=== PATIENT | male | born 1975 | race Caucasian/White ===

== ENCOUNTER 2017-08-04 23:54 | Inpatient (IN) | payer MEDICAID ==
[~2017-08-04] VITALS: Ht 175.3 cm; Wt 54.5 kg
[2017-08-05] VITALS (17 sets, daily range): BP systolic 82–127; BP diastolic 54–77; Ht 175.3 cm; Wt 54.5 kg
[2017-08-05 00:15] LABS: BASOPHILS 0.5 % (0-2); EOSINOPHILS 1.4 % (0-7); HEMATOCRIT 48.8 % (42.0-54.0); HEMOGLOBIN 16.9 g/dL (13.5-17.5); IMMATURE GRANULOCYTES 0.3 % (0-5); LYMPHOCYTES 29.7 % (15-50); MCH 29.4 pg (26.0-34.0); MCHC 34.6 g/dL (31.0-37.0); MEAN PLATELET VOLUME 10.9 fL (7.4-10.4); MONOCYTES 5.8 % (2-11); NEUTROPHILS 62.3 % (40-80); PLATELET COUNT 409 10x3/uL (130-400); RBC 5.74 10x6/uL (4.20-6.10); RDW 12.7 % (11.5-14.5)
[2017-08-05 00:40] LABS: ALBUMIN 3.6 g/dL (3.4-5.0); ANION GAP 25.3 mmol/L (8-16); BILIRUBIN - TOTAL 0.5 mg/dL (0.2-1.3); CARBON DIOXIDE 18.5 mmol/L (21.0-32.0); CREATININE - SERUM 1.4 mg/dL (0.6-1.3); POTASSIUM - SERUM 5.8 mmol/L (3.5-5.1); PROTEIN - SERUM 7.9 g/dL (6.4-8.2)
[2017-08-05 01:07] LABS: MAGNESIUM - SERUM 1.8 mg/dL (1.8-2.4)
[2017-08-05 01:16] LABS: APPEARANCE CLEAR (CLEAR); BILIRUBIN NEGATIVE (NEGATIVE); COLOR YELLOW (YELLOW); GLUCOSE 1000 mg/dL (NEGATIVE); KETONE MODERATE mg/dL (NEGATIVE); NITRITE NEGATIVE (NEGATIVE); PROTEIN NEGATIVE (NEGATIVE); UROBILINOGEN NORMAL (NORMAL)
[2017-08-05 01:23] LABS: PHOSPHOROUS 4.3 mg/dL (2.5-4.9)
[2017-08-05 11:21] LABS: CALCIUM 8.1 mg/dL (8.5-10.1); CARBON DIOXIDE 21.3 mmol/L (21.0-32.0); CHLORIDE - SERUM 106 mmol/L (98-107); MAGNESIUM - SERUM 1.5 mg/dL (1.8-2.4); SODIUM 139 mmol/L (136-145)
[2017-08-05 11:22] LABS: CALC OSMOLALITY 276 mosm/kg (275-300); CREATININE - SERUM 0.7 mg/dL (0.6-1.3); GLUCOSE 100 mg/dL (74-106); POTASSIUM - SERUM 3.5 mmol/L (3.5-5.1); UREA NITROGEN 11 mg/dL (7-18); eGFR NON AFRICAN AMERICAN > 90 mL/min (90-120)
[2017-08-05 15:00] LABS: CALC OSMOLALITY 281 mosm/kg (275-300); CALCIUM 8.5 mg/dL (8.5-10.1); CARBON DIOXIDE 19.7 mmol/L (21.0-32.0); CHLORIDE - SERUM 102 mmol/L (98-107); CREATININE - SERUM 0.8 mg/dL (0.6-1.3); GLUCOSE 310 mg/dL (74-106); MAGNESIUM - SERUM 1.6 mg/dL (1.8-2.4); POTASSIUM - SERUM 4.2 mmol/L (3.5-5.1); SODIUM 135 mmol/L (136-145); UREA NITROGEN 12 mg/dL (7-18); eGFR NON AFRICAN AMERICAN > 90 mL/min (90-120)
[2017-08-05 18:29] LABS: CALC OSMOLALITY 283 mosm/kg (275-300); CALCIUM 8.2 mg/dL (8.5-10.1); CARBON DIOXIDE 15.1 mmol/L (21.0-32.0); CHLORIDE - SERUM 101 mmol/L (98-107); CREATININE - SERUM 0.8 mg/dL (0.6-1.3); MAGNESIUM - SERUM 1.6 mg/dL (1.8-2.4); POTASSIUM - SERUM 3.8 mmol/L (3.5-5.1); SODIUM 134 mmol/L (136-145); UREA NITROGEN 13 mg/dL (7-18); eGFR NON AFRICAN AMERICAN > 90 mL/min (90-120)
[2017-08-05 18:35] LABS: GLUCOSE 388 mg/dL (74-106)
[2017-08-06] VITALS (10 sets, daily range): BP systolic 105–128; BP diastolic 59–76
[2017-08-06 03:05] LABS: BASOPHILS 0.4 % (0-2); EOSINOPHILS 3.8 % (0-7); HEMATOCRIT 36.2 % (42.0-54.0); HEMOGLOBIN 12.5 g/dL (13.5-17.5); IMMATURE GRANULOCYTES 0.4 % (0-5); LYMPHOCYTES 42.7 % (15-50); MCH 27.8 pg (26.0-34.0); MCHC 34.5 g/dL (31.0-37.0); MCV 80.4 fL (80.0-100.0); MEAN PLATELET VOLUME 10.3 fL (7.4-10.4); MONOCYTES 5.9 % (2-11); NEUTROPHILS 46.8 % (40-80); RDW 12.2 % (11.5-14.5); WBC 8.4 10x3/uL (4.8-10.8)
[2017-08-06 03:06] LABS: PLATELET COUNT 248 10x3/uL (130-400)
[2017-08-06 03:45] LABS: ALKALINE PHOSPHATASE 71 U/L (46-116); ALT (SGPT) 61 U/L (10-68); CALCIUM 7.7 mg/dL (8.5-10.1); CHLORIDE - SERUM 108 mmol/L (98-107); CHOL - HDL RATIO 4.6 ratio (2.3-4.9); CHOLESTEROL, TOTAL 134 mg/dL (0-200); CREATININE - SERUM 0.7 mg/dL (0.6-1.3); HDL CHOLESTEROL 29 mg/dL (32-96); LDL CHOLESTEROL 87 mg/dL (0-100); MAGNESIUM - SERUM 1.5 mg/dL (1.8-2.4); PROTEIN - SERUM 4.8 g/dL (6.4-8.2); SODIUM 139 mmol/L (136-145); TRIGLYCERIDE 90 mg/dL (30-200); eGFR NON AFRICAN AMERICAN > 90 mL/min (90-120)
[2017-08-06 03:49] LABS: CALC OSMOLALITY 280 mosm/kg (275-300); CARBON DIOXIDE 23.4 mmol/L (21.0-32.0); GLUCOSE 178 mg/dL (74-106); PHOSPHOROUS 2.2 mg/dL (2.5-4.9); UREA NITROGEN 9 mg/dL (7-18)
[2017-08-06] MEDS ORDERED: GLUCOPHAGE1000 MG PO (13:23)
[2017-08-06] MEDS ORDERED: GLIPIZIDE10 MG PO (13:23)
== END 2017-08-06 16:10 | disposition home or self-care (01) | DRG 638 ==
LOC: D.ER 23:54 → D.EDHOLD 08-05 01:09 → D.ICU 08-05 01:09 → D.M2 08-06 07:48
PROVIDERS: Emergency Medicine; Family Medicine; Physician Assistant
DX: E11.10 Type 2 diabetes mellitus with ketoacidosis without coma (principal); N17.9 Acute kidney failure, unspecified; E87.1 Hypo-osmolality and hyponatremia; E87.5 Hyperkalemia; Z72.0 Tobacco use

== ENCOUNTER 2017-12-26 22:05 | Inpatient (IN) | payer MEDICAID ==
[~2017-12-26] VITALS: Ht 172.7 cm; Wt 51.1 kg
[~2017-12-26 22:05] MED LIST: GLIPIZIDE10 MG PO; GLUCOPHAGE1000 MG PO
[2017-12-26 22:34] LABS: BASOPHILS 0.1 % (0-2); EOSINOPHILS 0.2 % (0-7); HEMATOCRIT 45.2 % (42.0-54.0); HEMOGLOBIN 16.3 g/dL (13.5-17.5); IMMATURE GRANULOCYTES 0.4 % (0-5); LYMPHOCYTES 27.4 % (15-50); MCH 29.1 pg (26.0-34.0); MCHC 36.1 g/dL (31.0-37.0); MCV 80.6 fL (80.0-100.0); MEAN PLATELET VOLUME 10.6 fL (7.4-10.4); NEUTROPHILS 66.9 % (40-80); PLATELET COUNT 256 10x3/uL (130-400); RBC 5.61 10x6/uL (4.20-6.10); RDW 12.9 % (11.5-14.5); WBC 13.5 10x3/uL (4.8-10.8)
[2017-12-26 22:51] LABS: KETONE - SERUM SMALL mg/dL (NEGATIVE)
[2017-12-26 22:59] LABS: ALBUMIN 3.8 g/dL (3.4-5.0); ALKALINE PHOSPHATASE 133 U/L (46-116); ALT (SGPT) 60 U/L (10-68); BILIRUBIN - TOTAL 0.45 mg/dL (0.2-1.3); CALCIUM 10.2 mg/dL (8.5-10.1); CHLORIDE - SERUM 87 mmol/L (98-107); CREATININE - SERUM 1.3 mg/dL (0.6-1.3); POTASSIUM - SERUM 4.4 mmol/L (3.5-5.1); PROTEIN - SERUM 7.9 g/dL (6.4-8.2); SODIUM 122 mmol/L (136-145); UREA NITROGEN 24 mg/dL (7-18); eGFR NON AFRICAN AMERICAN 64 mL/min (90-120)
[2017-12-26 23:01] LABS: CALC OSMOLALITY 281 mosm/kg (275-300)
[2017-12-26 23:02] LABS: CARBON DIOXIDE 8.6 mmol/L (21.0-32.0); GLUCOSE 666 mg/dL (74-106)
[2017-12-26 23:46] LABS: APPEARANCE CLEAR (CLEAR); BILIRUBIN NEGATIVE (NEGATIVE); COLOR STRAW (YELLOW); GLUCOSE 1000 mg/dL (NEGATIVE); KETONE LARGE mg/dL (NEGATIVE); NITRITE NEGATIVE (NEGATIVE); PROTEIN TRACE mg/dL (NEGATIVE); UROBILINOGEN NORMAL (NORMAL)
[2017-12-27] VITALS (28 sets, daily range): BP systolic 90–133; BP diastolic 45–79; Ht 172.7 cm; Wt 51.1 kg
[2017-12-27] MEDS ORDERED: IBUPROFEN200 MG PO (02:11)
[2017-12-27 08:05] LABS: CALCIUM 9.1 mg/dL (8.5-10.1); CHLORIDE - SERUM 106 mmol/L (98-107); MAGNESIUM - SERUM 1.8 mg/dL (1.8-2.4); SODIUM 137 mmol/L (136-145)
[2017-12-27 08:22] LABS: CALC OSMOLALITY 273 mosm/kg (275-300); CARBON DIOXIDE 18.6 mmol/L (21.0-32.0); CREATININE - SERUM 0.7 mg/dL (0.6-1.3); GLUCOSE 68 mg/dL (74-106); POTASSIUM - SERUM 2.9 mmol/L (3.5-5.1); UREA NITROGEN 17 mg/dL (7-18); eGFR NON AFRICAN AMERICAN > 90 mL/min (90-120)
[2017-12-27 12:46] LABS: CALCIUM 9.1 mg/dL (8.5-10.1); CARBON DIOXIDE 20.1 mmol/L (21.0-32.0); CHLORIDE - SERUM 105 mmol/L (98-107); CREATININE - SERUM 0.8 mg/dL (0.6-1.3); MAGNESIUM - SERUM 1.8 mg/dL (1.8-2.4); SODIUM 137 mmol/L (136-145); THYROID STIMULATING HORMONE 1.92 uIU/mL (0.36-3.74); UREA NITROGEN 16 mg/dL (7-18); eGFR NON AFRICAN AMERICAN > 90 mL/min (90-120)
[2017-12-27 12:47] LABS: CALC OSMOLALITY 279 mosm/kg (275-300); GLUCOSE 196 mg/dL (74-106); POTASSIUM - SERUM 4.1 mmol/L (3.5-5.1)
[2017-12-27 16:49] LABS: CALC OSMOLALITY 283 mosm/kg (275-300); CALCIUM 8.8 mg/dL (8.5-10.1); CARBON DIOXIDE 17.2 mmol/L (21.0-32.0); CHLORIDE - SERUM 102 mmol/L (98-107); CREATININE - SERUM 0.8 mg/dL (0.6-1.3); MAGNESIUM - SERUM 1.8 mg/dL (1.8-2.4); POTASSIUM - SERUM 4.1 mmol/L (3.5-5.1); SODIUM 134 mmol/L (136-145); UREA NITROGEN 14 mg/dL (7-18); eGFR NON AFRICAN AMERICAN > 90 mL/min (90-120)
[2017-12-27 17:04] LABS: GLUCOSE 363 mg/dL (74-106)
[2017-12-28] VITALS (19 sets, daily range): BP systolic 83–112; BP diastolic 47–77
[2017-12-28 08:35] LABS: BASOPHILS 0.4 % (0-2); EOSINOPHILS 3.5 % (0-7); HEMATOCRIT 36.3 % (42.0-54.0); HEMOGLOBIN 13.2 g/dL (13.5-17.5); IMMATURE GRANULOCYTES 0.3 % (0-5); LYMPHOCYTES 49.7 % (15-50); MCH 28.6 pg (26.0-34.0); MCHC 36.4 g/dL (31.0-37.0); MCV 78.7 fL (80.0-100.0); MEAN PLATELET VOLUME 9.5 fL (7.4-10.4); MONOCYTES 8.6 % (2-11); NEUTROPHILS 37.5 % (40-80); RBC 4.61 10x6/uL (4.20-6.10); RDW 12.8 % (11.5-14.5)
[2017-12-28 08:36] LABS: PLATELET COUNT 172 10x3/uL (130-400); WBC 7.7 10x3/uL (4.8-10.8)
[2017-12-28 08:48] LABS: CALCIUM 8.9 mg/dL (8.5-10.1); CHLORIDE - SERUM 107 mmol/L (98-107); CREATININE - SERUM 0.7 mg/dL (0.6-1.3); SODIUM 139 mmol/L (136-145); eGFR NON AFRICAN AMERICAN > 90 mL/min (90-120)
[2017-12-28 08:51] LABS: CALC OSMOLALITY 277 mosm/kg (275-300); GLUCOSE 119 mg/dL (74-106); UREA NITROGEN 9 mg/dL (7-18)
[2017-12-28 08:52] LABS: CARBON DIOXIDE 23.8 mmol/L (21.0-32.0); POTASSIUM - SERUM 2.7 mmol/L (3.5-5.1)
[2017-12-29 09:58] LABS: BASOPHILS 0.2 % (0-2); EOSINOPHILS 1.4 % (0-7); HEMATOCRIT 36.8 % (42.0-54.0); HEMOGLOBIN 13.1 g/dL (13.5-17.5); IMMATURE GRANULOCYTES 0.3 % (0-5); LYMPHOCYTES 48.2 % (15-50); MCH 28.2 pg (26.0-34.0); MCHC 35.6 g/dL (31.0-37.0); MCV 79.3 fL (80.0-100.0); MEAN PLATELET VOLUME 10.3 fL (7.4-10.4); MONOCYTES 7.7 % (2-11); NEUTROPHILS 42.2 % (40-80); PLATELET COUNT 174 10x3/uL (130-400); RBC 4.64 10x6/uL (4.20-6.10); RDW 12.9 % (11.5-14.5); WBC 6.5 10x3/uL (4.8-10.8)
[2017-12-29 10:08] LABS: CALCIUM 8.8 mg/dL (8.5-10.1); CARBON DIOXIDE 29.3 mmol/L (21.0-32.0); CHLORIDE - SERUM 104 mmol/L (98-107); POTASSIUM - SERUM 3.1 mmol/L (3.5-5.1); SODIUM 138 mmol/L (136-145)
[2017-12-29 10:10] LABS: CALC OSMOLALITY 279 mosm/kg (275-300); GLUCOSE 226 mg/dL (74-106); UREA NITROGEN 5 mg/dL (7-18)
[2017-12-29 10:11] LABS: CREATININE - SERUM 0.5 mg/dL (0.6-1.3); eGFR NON AFRICAN AMERICAN > 90 mL/min (90-120)
[2017-12-29 20:00] VITALS: BP 91/60
[2017-12-30] VITALS: BP 103/59
[2017-12-30 04:00] VITALS: BP 97/58
[2017-12-30 06:18] LABS: HEMATOCRIT 35.5 % (42.0-54.0); HEMOGLOBIN 12.5 g/dL (13.5-17.5); MCH 28.2 pg (26.0-34.0); MCHC 35.2 g/dL (31.0-37.0); MCV 80.1 fL (80.0-100.0); MEAN PLATELET VOLUME 10.4 fL (7.4-10.4); PLATELET COUNT 195 10x3/uL (130-400); RBC 4.43 10x6/uL (4.20-6.10)
[2017-12-30 06:25] LABS: CALCIUM 9.3 mg/dL (8.5-10.1); CARBON DIOXIDE 27.8 mmol/L (21.0-32.0); CHLORIDE - SERUM 104 mmol/L (98-107); SODIUM 139 mmol/L (136-145)
[2017-12-30 06:26] LABS: CALC OSMOLALITY 277 mosm/kg (275-300); CREATININE - SERUM 0.7 mg/dL (0.6-1.3); GLUCOSE 138 mg/dL (74-106); POTASSIUM - SERUM 3.7 mmol/L (3.5-5.1); UREA NITROGEN 7 mg/dL (7-18); eGFR NON AFRICAN AMERICAN > 90 mL/min (90-120)
[2017-12-30 08:02] VITALS: BP 88/55
[2017-12-30 08:23] LABS: EOSINOPHILS 2 % (0-7); LYMPHOCYTES 49 % (15-50); NEUTROPHILS 49 % (40-80); PLATELET ESTIMATE NORMAL
[2017-12-30] MEDS ORDERED: Nicoderm [PBKC] TRANSDERM (09:46)
[2017-12-30] MEDS ORDERED: Lantus Solostar PEN SC (09:46)
[2017-12-30] MEDS ORDERED: HUMULIN R100 U/ML SC (09:47)
== END 2017-12-30 11:20 | disposition home or self-care (01) | DRG 638 ==
LOC: D.ER 22:05 → D.ICU 12-27 00:25 → D.CVICU 12-27 00:25 → D.MS 12-28 20:10
PROVIDERS: Family Medicine; Internal Medicine Nephrology
DX: E11.10 Type 2 diabetes mellitus with ketoacidosis without coma (principal); Z68.1 Body mass index [BMI] 19.9 or less, adult; Z91.14 Patient's other noncompliance with medication regimen; F19.10 Other psychoactive substance abuse, uncomplicated; K21.9 Gastro-esophageal reflux disease without esophagitis; R63.6 Underweight; E87.6 Hypokalemia; E83.39 Other disorders of phosphorus metabolism; D50.9 Iron deficiency anemia, unspecified; K59.00 Constipation, unspecified

== ENCOUNTER → 2018-03-01 13:42 | Outpatient (CLI) | payer MEDICAID ==
[2017-12-27 11:19] VITALS: BMI 16.1
[~2018-03-01 13:42] MED LIST changes: +HUMULIN R100 U/ML SC; +IBUPROFEN200 MG PO; +Lantus Solostar PEN SC; +Nicoderm [PBKC] TRANSDERM
== END | disposition home or self-care (01) ==
LOC: D.US 13:42
DX: N50.9 Disorder of male genital organs, unspecified (principal)

== ENCOUNTER 2018-03-23 11:41 | Emergency (ER) | payer MEDICAID ==
[~2018-03-23] VITALS: Ht 172.7 cm; Wt 62.3 kg
[2018-03-23 11:47] VITALS: Ht 172.7 cm; Wt 62.3 kg
[2018-03-23] MEDS ORDERED: NOVOLOG100 UNIT/1 SQ (11:50)
[2018-03-23] MEDS ORDERED: BASAGLAR K100 UNIT/1 SC (11:51)
[2018-03-23 12:17] LABS: BASOPHILS 0.3 % (0-2); EOSINOPHILS 2.7 % (0-7); HEMATOCRIT 41.6 % (42.0-54.0); HEMOGLOBIN 15.2 g/dL (13.5-17.5); IMMATURE GRANULOCYTES 0.3 % (0-5); LYMPHOCYTES 43.6 % (15-50); MCHC 36.5 g/dL (31.0-37.0); MCV 79.2 fL (80.0-100.0); MEAN PLATELET VOLUME 10.2 fL (7.4-10.4); MONOCYTES 5.5 % (2-11); NEUTROPHILS 47.6 % (40-80); PLATELET COUNT 302 10x3/uL (130-400); RBC 5.25 10x6/uL (4.20-6.10); RDW 12.5 % (11.5-14.5); WBC 10.8 10x3/uL (4.8-10.8)
[2018-03-23 12:26] LABS: KETONE - SERUM NEGATIVE (NEGATIVE)
[2018-03-23 12:28] LABS: ALBUMIN 4.1 g/dL (3.4-5.0); ALKALINE PHOSPHATASE 266 U/L (46-116); ALT (SGPT) 75 U/L (10-68); CALC OSMOLALITY 278 mosm/kg (275-300); CALCIUM 10.3 mg/dL (8.5-10.1); CARBON DIOXIDE 21.8 mmol/L (21.0-32.0); CHLORIDE - SERUM 94 mmol/L (98-107); GLUCOSE 280 mg/dL (74-106); LIPASE 255 U/L (73-393); MAGNESIUM - SERUM 1.9 mg/dL (1.8-2.4); POTASSIUM - SERUM 3.5 mmol/L (3.5-5.1); PROTEIN - SERUM 8.4 g/dL (6.4-8.2); SODIUM 133 mmol/L (136-145); UREA NITROGEN 21 mg/dL (7-18); eGFR NON AFRICAN AMERICAN 87 mL/min (90-120)
[2018-03-23 14:18] VITALS: BP 118/81
== END 2018-03-23 14:19 | disposition home or self-care (01) ==
LOC: D.ER 11:41
PROVIDERS: Family Medicine
DX: E10.65 Type 1 diabetes mellitus with hyperglycemia (principal); Z79.4 Long term (current) use of insulin

== ENCOUNTER 2018-06-14 23:40 | Inpatient (IN) | payer MEDICAID ==
[~2018-06-14] VITALS: Ht 172.7 cm; Wt 49.0 kg
[~2018-06-14 23:40] MED LIST changes: +BASAGLAR K100 UNIT/1 SC; +NOVOLOG100 UNIT/1 SQ
[2018-06-15] VITALS (26 sets, daily range): BP systolic 82–112; BP diastolic 44–74; Ht 172.7 cm; Wt 49.0 kg
[2018-06-15 01:06] LABS: APPEARANCE CLEAR (CLEAR); BILIRUBIN NEGATIVE (NEGATIVE); COLOR STRAW (YELLOW); GLUCOSE 1000 mg/dL (NEGATIVE); KETONE MODERATE mg/dL (NEGATIVE); NITRITE NEGATIVE (NEGATIVE); PROTEIN NEGATIVE (NEGATIVE); SPECIFIC GRAVITY 1.015 (1.005-1.020); UROBILINOGEN NORMAL (NORMAL)
[2018-06-15 01:10] LABS: BASOPHILS 0.4 % (0-2); EOSINOPHILS 1.9 % (0-7); HEMATOCRIT 43.8 % (42.0-54.0); HEMOGLOBIN 14.9 g/dL (13.5-17.5); IMMATURE GRANULOCYTES 0.2 % (0-5); LYMPHOCYTES 36.9 % (15-50); MCH 28.1 pg (26.0-34.0); MCV 82.5 fL (80.0-100.0); MEAN PLATELET VOLUME 10.3 fL (7.4-10.4); MONOCYTES 5.3 % (2-11); NEUTROPHILS 55.3 % (40-80); PLATELET COUNT 383 10x3/uL (130-400); RBC 5.31 10x6/uL (4.20-6.10); RDW 13.8 % (11.5-14.5); WBC 12.2 10x3/uL (4.8-10.8)
[2018-06-15 01:13] LABS: ALBUMIN 3.6 g/dL (3.4-5.0); ALKALINE PHOSPHATASE 215 U/L (46-116); ALT (SGPT) 84 U/L (10-68); BILIRUBIN - TOTAL 0.47 mg/dL (0.2-1.3); CALCIUM 9.3 mg/dL (8.5-10.1); CARBON DIOXIDE 15.9 mmol/L (21.0-32.0); CHLORIDE - SERUM 87 mmol/L (98-107); CREATININE - SERUM 1.3 mg/dL (0.6-1.3); MAGNESIUM - SERUM 1.9 mg/dL (1.8-2.4); POTASSIUM - SERUM 4.6 mmol/L (3.5-5.1); SODIUM 127 mmol/L (136-145); UREA NITROGEN 20 mg/dL (7-18); eGFR NON AFRICAN AMERICAN 64 mL/min (90-120)
[2018-06-15 01:28] LABS: CALC OSMOLALITY 287 mosm/kg (275-300); GLUCOSE 638 mg/dL (74-106); KETONE - SERUM MODERATE mg/dL (NEGATIVE)
--- NOTE | 2018-06-15 02:20 | NUR ---
PAGED RT FOR ABG ORDER
--- NOTE | 2018-06-15 02:43 | NUR ---
RT PAGED AGAIN FOR ABG ORDER
--- NOTE | 2018-06-15 03:10 | NUR ---
PT BS 570, INSULIN DRIP STARTED AT 4UNITS/HR
--- NOTE | 2018-06-15 04:40 | NUR ---
Received patient from ER via wheelchair to 2305, positioned in bed and connected to monitor. S1/S2 noted NSR on telemetry with HR 85, rythmic and regular. Breathing is even/unlabored on room air with O2 sat 100%, lung sounds clear throughout. All pulses palpable with cap refill < 3 sec, skin warm/dry. Patient AO x4, answers appropriately/follows instructions. Denies pain or other needs at this time, see flowsheet for details. All VSS and will continue to monitor.
--- NOTE | 2018-06-15 04:41 | NUR ---
STOP TIME FOR INSULIN AND D51/2NSWITH 20 KCL 1237
--- NOTE | 2018-06-15 07:10 | NUR ---
REPORT RECEIVED. PT RESTING QUIETLY IN BED. ON INSULIN DRIP. 2 PERIPHERAL IVS. BS AT 0700 278. WILL CHECK AGAIN AT 0800. VSS. NO NEEDS AT THIS TIME. WILL CONTINUE TO MONITOR.
[2018-06-15 08:17] LABS: CALC OSMOLALITY 276 mosm/kg (275-300); CALCIUM 8.6 mg/dL (8.5-10.1); CARBON DIOXIDE 26.5 mmol/L (21.0-32.0); CHLORIDE - SERUM 100 mmol/L (98-107); GLUCOSE 226 mg/dL (74-106); POTASSIUM - SERUM 3.6 mmol/L (3.5-5.1); SODIUM 134 mmol/L (136-145); UREA NITROGEN 17 mg/dL (7-18); eGFR NON AFRICAN AMERICAN 86 mL/min (90-120)
--- NOTE | 2018-06-15 09:00 | NUR ---
BS CHECKED AND INSULIN DRIPPED ADJUSTED PER ORDERS. PT RESTING QUIETLY. VSS. NO COMPLAINTS AT THIS TIME. WILL CONTINUE TO MONITOR.
--- NOTE | 2018-06-15 11:00 | NUR ---
PT RESTING QUIETLY. BS CHECKED AND INSULING ADJUSTED PER ORDERS. VSS. NO NEEDS AT THIS TIME.
--- NOTE | 2018-06-15 13:10 | NUR ---
LAB IN TO COLLECT BLOOD. NO NEEDS AT THIS TIME.
[2018-06-15 13:33] LABS: CALC OSMOLALITY 274 mosm/kg (275-300); CALCIUM 8.6 mg/dL (8.5-10.1); CARBON DIOXIDE 27.8 mmol/L (21.0-32.0); CHLORIDE - SERUM 102 mmol/L (98-107); CREATININE - SERUM 0.8 mg/dL (0.6-1.3); POTASSIUM - SERUM 3.3 mmol/L (3.5-5.1); SODIUM 137 mmol/L (136-145); UREA NITROGEN 16 mg/dL (7-18); eGFR NON AFRICAN AMERICAN > 90 mL/min (90-120)
[2018-06-15 13:34] LABS: GLUCOSE 95 mg/dL (74-106)
--- NOTE | 2018-06-15 14:27 | NUR ---
NEW ORDERS PER DR JOHNSON. PT OFF INSULIN DRIP. ON INTERMEDIATE SLIDING SCALE. POTASSIUM WAS 3.3 ON LAST BMP. GAVE 1ST DOSE OF 40 MEQ PO. PT HAS NO NEEDS AT THIS TIME. WILL CONTINUE TO MONITOR.
--- NOTE | 2018-06-15 15:22 | NUR ---
REPORT CALLED TO [facility]. TRANSFERRING PT TO CV06.
--- NOTE | 2018-06-15 16:05 | NUR ---
1545 PT ARRIVED TO ROOM, PLACED ON MONITORING EQUIPMENT AND ALL ALARMS SET 1600 FSBS 110, MOTHER HERE FOR VISITATION
[2018-06-15 16:33] LABS: CALCIUM 8.1 mg/dL (8.5-10.1); CARBON DIOXIDE 28.8 mmol/L (21.0-32.0); CHLORIDE - SERUM 100 mmol/L (98-107); CREATININE - SERUM 0.8 mg/dL (0.6-1.3); SODIUM 135 mmol/L (136-145); UREA NITROGEN 15 mg/dL (7-18); eGFR NON AFRICAN AMERICAN > 90 mL/min (90-120)
[2018-06-15 16:36] LABS: CALC OSMOLALITY 273 mosm/kg (275-300); GLUCOSE 149 mg/dL (74-106); POTASSIUM - SERUM 4.1 mmol/L (3.5-5.1)
--- NOTE | 2018-06-15 17:36 | MORECARE ---
CASE MANAGEMENT DISCHARGE SUMMARY PATIENT: AIDA SMITH UNIT: [id number] ADM DATE: 06/15/18 AGE: 43 : [birth year] SEX: M ROOM/BED: D[facility] AUTHOR: TERESA HUERTA PHYSICIAN: REFERRING PHYSICIAN: CHIP JOHNSON MD DATE OF SERVICE: 06/15/18 Discharge Plan Patient Name: AIDA SMITH [facility] [facility] 1975 Planned Disposition: Home Anticipated Discharge Date: Discharge Date: Expected LOS: Initial Reviewer: [email or web address] Initial Review Date: 06/15/2018 Generated: 06/15/18 6:36 pm DCPIA - Discharge Planning Initial Assessment Updated by [email or web address]: Juana Cruz on 06/15/18 5:31 pm * Is the patient Alert and Oriented? Yes * How many steps to enter\exit or inside your home? * PCP TANISHAO * Pharmacy [facility] [address] * Preadmission Environment Home with Family * ADLs Independent * Equipment Glucometer * List name and contact numbers for known caregivers / representatives who currently or will assist patient after discharge: KATHYA SMITH - [facility]- [phone] * Verbal permission to speak to the caregivers and representatives has been obtained from the patient. Yes * Community resources currently utilized None * Additional services required to return to the preadmission environment? No * Can the patient safely return to the preadmission environment? Yes * Has this patient been hospitalized within the prior 30 days at any hospital? No Patient Name: AIDA SMITH Page [phone] at 1736 All edits/amendments must be made on the electronic document DICTATION DATE: 06/15/181735 COMMERCIAL INTERNSHIP: DANAE 06/15/181735 RPT#: [id number] DC DATE: STATUS: ADM IN [facility] [address] [place] [address] END OF REPORT
--- NOTE | 2018-06-15 18:04 | MORECARE ---
CASE MANAGEMENT DISCHARGE SUMMARY PATIENT: AIDA SMITH UNIT: [id number] ADM DATE: 06/15/18 AGE: 43 : 73 SEX: M [facility]ED: [facility] AUTHOR: TERESA HUERTA PHYSICIAN: REFERRING PHYSICIAN: CHIP JOHNSON MD DATE OF SERVICE: 06/15/18 Discharge Plan Patient Name: AIDA SMITH [facility] : 1975 Planned Disposition: Home Anticipated Discharge Date: Discharge Date: Expected LOS: Initial Reviewer: [email or web address] Initial Review Date: 06/15/2018 Generated: 06/15/18 7:04 pm DCPIA - Discharge Planning Initial Assessment Updated by [email or web address]: Juana Cruz on 06/15/18 6:02 pm * Is the patient Alert and Oriented? Yes * How many steps to enter\exit or inside your home? * PCP TANISHAO * [facility] [address] * Preadmission Environment Home with Family * ADLs Independent * Equipment Glucometer * List name and contact numbers for known caregivers / representatives who currently or will assist patient after discharge: KATHYA SMITH - [facility]- [phone] * Verbal permission to speak to the caregivers and representatives has been obtained from the patient. Yes * Community resources currently utilized None * Additional services required to return to the preadmission environment? No * Can the patient safely return to the preadmission environment? Yes * Has this patient been hospitalized within the prior 30 days at any hospital? No Last DP export: 06/15/18 4:36 p Patient Name: AIDA SMITH Page [phone] at 1804 All edits/amendments must be made on the electronic document DICTATION DATE: 06/15/181802 MANAGER PORTABLE: DANAE 06/15/181802 RPT#: [id number] DC DATE: STATUS: ADM IN [facility] [address] [place] [address] END OF REPORT
--- NOTE | 2018-06-15 19:00 | NUR ---
REPORT RECIEVED, SHIFT ASSESSMENT COMPLETE, PLEASE SEE FLOW SHEETS FOR DETAILS. DENIES PAIN/NEEDS. HEMODYNAMICALLY STABLE, BED LOW AND LOCKED, CALL LIGHT IN REACH. WILL CONTINUE PLAN OF CARE.
[2018-06-15 19:22] LABS: UDS - AMPHET POSITIVE QUAL (NEGATIVE); UDS - BARB NEGATIVE QUAL (NEGATIVE); UDS - BENZO NEGATIVE QUAL (NEGATIVE); UDS - COCAINE NEGATIVE QUAL (NEGATIVE); UDS - OPIATE NEGATIVE QUAL (NEGATIVE); UDS - PCP NEGATIVE QUAL (NEGATIVE); UDS - THC NEGATIVE QUAL (NEGATIVE)
[2018-06-15 20:39] LABS: ALBUMIN 2.7 g/dL (3.4-5.0); ALKALINE PHOSPHATASE 127 U/L (46-116); BILIRUBIN - TOTAL 0.34 mg/dL (0.2-1.3); CALCIUM 8.2 mg/dL (8.5-10.1); CARBON DIOXIDE 22.6 mmol/L (21.0-32.0); CHLORIDE - SERUM 99 mmol/L (98-107); CREATININE - SERUM 0.9 mg/dL (0.6-1.3); POTASSIUM - SERUM 4.5 mmol/L (3.5-5.1); PROTEIN - SERUM 6.2 g/dL (6.4-8.2); SODIUM 132 mmol/L (136-145); UREA NITROGEN 15 mg/dL (7-18); eGFR NON AFRICAN AMERICAN > 90 mL/min (90-120)
[2018-06-15 20:40] LABS: ALT (SGPT) 62 U/L (10-68); CALC OSMOLALITY 279 mosm/kg (275-300); GLUCOSE 345 mg/dL (74-106)
--- NOTE | 2018-06-15 20:58 | NUR ---
RESTING IN BED WITH SISTERS AT BEDSIDE. DENIES PAIN/NEEDS. DRESSING AT PEG TUBE SITE CHANGED, 220 RESIDUAL ASPIRATED AND RETURNED, PATIENT REPORTS NO FEELING OF FULLNESS. HEMODYNAMICALLY STABLE, BED LOW AND LOCKED, CALL LIGHT IN REACH. WILL CONTINUE PLAN OF CARE.
[2018-06-16] VITALS (13 sets, daily range): BP systolic 86–110; BP diastolic 30–69
[2018-06-16 00:54] LABS: CALC OSMOLALITY 279 mosm/kg (275-300); CALCIUM 8.1 mg/dL (8.5-10.1); CARBON DIOXIDE 23.4 mmol/L (21.0-32.0); CHLORIDE - SERUM 103 mmol/L (98-107); CREATININE - SERUM 0.7 mg/dL (0.6-1.3); GLUCOSE 199 mg/dL (74-106); POTASSIUM - SERUM 3.5 mmol/L (3.5-5.1); SODIUM 137 mmol/L (136-145); UREA NITROGEN 13 mg/dL (7-18); eGFR NON AFRICAN AMERICAN > 90 mL/min (90-120)
--- NOTE | 2018-06-16 01:00 | NUR ---
RESTING, VSS, BED LOW AND LOCKED, CALL LIGHT IN REACH. WILL CONTINUE PLAN OF CARE.
--- NOTE | 2018-06-16 03:00 | NUR ---
REASSESSMENT COMPLETE, PLEASE SEE FLOW SHEETS FOR DETAILS. HEMODYNAMICALLY STABLE, BED LOW AND LOCKED, CALL LIGHT IN REACH. WILL CPOC.
[2018-06-16 06:58] LABS: BASOPHILS 0.4 % (0-2); EOSINOPHILS 3.9 % (0-7); HEMATOCRIT 39.5 % (42.0-54.0); HEMOGLOBIN 13.3 g/dL (13.5-17.5); IMMATURE GRANULOCYTES 0.4 % (0-5); LYMPHOCYTES 45.1 % (15-50); MCH 27.5 pg (26.0-34.0); MCHC 33.7 g/dL (31.0-37.0); MCV 81.6 fL (80.0-100.0); MEAN PLATELET VOLUME 10.1 fL (7.4-10.4); MONOCYTES 6.6 % (2-11); NEUTROPHILS 43.6 % (40-80); PLATELET COUNT 328 10x3/uL (130-400); RBC 4.84 10x6/uL (4.20-6.10); RDW 14.1 % (11.5-14.5); WBC 11.3 10x3/uL (4.8-10.8)
[2018-06-16 06:59] LABS: CALC OSMOLALITY 277 mosm/kg (275-300); CALCIUM 8.6 mg/dL (8.5-10.1); CARBON DIOXIDE 24.9 mmol/L (21.0-32.0); CHLORIDE - SERUM 104 mmol/L (98-107); CREATININE - SERUM 0.6 mg/dL (0.6-1.3); MAGNESIUM - SERUM 1.9 mg/dL (1.8-2.4); PHOSPHOROUS 2.6 mg/dL (2.5-4.9); POTASSIUM - SERUM 3.9 mmol/L (3.5-5.1); SODIUM 138 mmol/L (136-145); UREA NITROGEN 15 mg/dL (7-18); eGFR NON AFRICAN AMERICAN > 90 mL/min (90-120)
[2018-06-16 07:05] LABS: GLUCOSE 122 mg/dL (74-106)
--- NOTE | 2018-06-16 07:50 | NUR ---
RESTING COMFORTABLY. DENIES ANY PAIN. ON ROOM AIR. PIV ON L-FOREARM AND L-HAND SALINE LOCKED. VSS. NO FEVER. ASKING FOR HIS BREAKFAST TRAY. SHIFT ASSESSMENT COMPLETED. SAFETY MEASURES IN PLACE. WILL CONTINUE TO MONITOR.
--- NOTE | 2018-06-16 09:36 | MORECARE ---
CASE MANAGEMENT DISCHARGE SUMMARY PATIENT: AIDA SMITH UNIT: [id number] ADM DATE: 06/15/18 AGE: 43 : 73 SEX: M ROOM/BED: D[facility] AUTHOR: BRADLEY,DOC PHYSICIAN: REFERRING PHYSICIAN: CHIP JOHNSON MD DATE OF SERVICE: 06/16/18 Discharge Plan Patient Name: AIDA SMITH Facility: [facility]:[place] : 1975 Planned Disposition: Home Anticipated Discharge Date: Discharge Date: Expected LOS: Initial Reviewer: [email or web address] Initial Review Date: 06/15/2018 Generated: 06/16/18 10:36 am Comments DCP- Discharge Planning Updated by [email or web address]: Juana Cruz on 06/16/18 8:[address] LATE ENTRY 06/15/18 @ 1600 Patient Name: AIDA SMITH Admission Status: ER Accout number: [id number] Admission Date: 06-15-2018 : 1975 Admission Diagnosis: Attending: CHIP JOHNSON Current LOS: 1 Anticipated DC Date: Planned Disposition: Home Primary Insurance: [place] PRIVATE OPTIONS MUKUND Discharge Planning Comments: CM met with patient and his mother Kathya at bedside after obtaining verbal consent. Patient states that he lives with his mother for the most part. He stays with friends often. Patient states that he has a glucometer at home to check his sugar. CM asked if he sees a specialist for his diabetes. He stated that he didn't have a specialist but was interested in seeing one. CM printed information on local country printer apprentice for patient. Patient denies any discharge needs at this time. CM will continue to follow and assist as needed with discharge planning needs. Gas Burner Operator: Juana Cruz DCPIA - Discharge Planning Initial Assessment Updated by [email or web address]: Juana Cruz on 06/15/18 6:02 pm * Is the patient Alert and Oriented? Yes * How many steps to enter\exit or inside your home? * PCP TANISHAO * [facility] [address] * Preadmission Environment Home with Family * ADLs Independent * Equipment Glucometer * List name and contact numbers for known caregivers / representatives who currently or will assist patient after discharge: KATHYA SMITH - MOTHER- [phone] * Verbal permission to speak to the caregivers and representatives has been obtained from the patient. Yes * Community resources currently utilized None * Additional services required to return to the preadmission environment? No * Can the patient safely return to the preadmission environment? Yes * Has this patient been hospitalized within the prior 30 days at any hospital? No Last DP export: 06/15/18 5:04 p Patient Name: AIDA SMITH Page [phone] at 0936 All edits/amendments must be made on the electronic document DICTATION DATE: 06/16/18934 REFRIGERATION SUPERVISOR: DANAE 06/16/18934 RPT#: [id number] DC DATE: STATUS: ADM IN [facility] [address] [place] [address] END OF REPORT
[2018-06-16 10:18] LABS: CALCIUM 8.6 mg/dL (8.5-10.1); CARBON DIOXIDE 28.4 mmol/L (21.0-32.0); CHLORIDE - SERUM 102 mmol/L (98-107); SODIUM 135 mmol/L (136-145); UREA NITROGEN 15 mg/dL (7-18)
[2018-06-16 10:19] LABS: CALC OSMOLALITY 281 mosm/kg (275-300); CREATININE - SERUM 0.8 mg/dL (0.6-1.3); GLUCOSE 304 mg/dL (74-106); POTASSIUM - SERUM 4.5 mmol/L (3.5-5.1); eGFR NON AFRICAN AMERICAN > 90 mL/min (90-120)
--- NOTE | 2018-06-16 11:58 | NUR ---
BLOOD GLUCOSE 354. 16 UNITS OF HUMALOG GIVEN PER SLIDING SCALE.
--- NOTE | 2018-06-16 12:30 | NUR ---
PT BEING DISCHARGED HOME. DISCHARGE INTRUCTIONS REVIEWED AND COPY GIVEN TO PATIENT. WAITING ON RIDE.
--- NOTE | 2018-06-16 13:00 | NUR ---
DISCHARGED HOME. PERSONAL BELONGINGS SENT WITH PATIENT. PIV X 2 DC'D WITH CATHETER TIP INTACT. AMBULATED SELF TO PERSONAL VEHICLE.
--- NOTE | 2018-06-16 16:19 | MORECARE ---
CASE MANAGEMENT DISCHARGE SUMMARY PATIENT: AIDA SMITH UNIT: [id number] ADM DATE: 06/15/18 AGE: 43 : 73 SEX: M RO[facility]ED: [facility] AUTHOR: BRADLEY,DOC PHYSICIAN: REFERRING PHYSICIAN: CHIP JOHNSON MD DATE OF SERVICE: 06/16/18 Discharge Plan Patient Name: AIDA SMITH Facility: [facility]:[place] : 1975 Planned Disposition: Home Anticipated Discharge Date: Discharge Date: 06/16/2018 Expected LOS: Initial Reviewer: [email or web address] Initial Review Date: 06/15/2018 Generated: 06/16/18 5:19 pm Comments DCP- Discharge Planning Updated by [email or web address]: Juana Cruz on 06/16/18 8:[address] LATE ENTRY 06/15/18 @ 1600 Patient Name: AIDA SMITH Admission Status: ER Accout number: [id number] Admission Date: 06-15-2018 : 1975 Admission Diagnosis: Attending: CHIP JOHNSON Current LOS: 1 Anticipated DC Date: Planned Disposition: Home Primary Insurance: [place] PRIVATE OPTIONS [place]UND Discharge Planning Comments: CM met with patient and his mother Kathya at bedside after obtaining verbal consent. Patient states that he lives with his mother for the most part. He stays with friends often. Patient states that he has a glucometer at home to check his sugar. CM asked if he sees a specialist for his diabetes. He stated that he didn't have a specialist but was interested in seeing one. CM printed information on local kiln setter for patient. Patient denies any discharge needs at this time. CM will continue to follow and assist as needed with discharge planning needs. Distribution Designer: Juana Cruz DCPIA - Discharge Planning Initial Assessment Updated by [email or web address]: Juana Cruz on 06/15/18 6:02 pm * Is the patient Alert and Oriented? Yes * How many steps to enter\exit or inside your home? * PCP NIYAH * Pharmacy [facility] [address] * Preadmission Environment Home with Family * ADLs Independent * Equipment Glucometer * List name and contact numbers for known caregivers / representatives who currently or will assist patient after discharge: KATHYA SMITH - MOTHER- [phone] * Verbal permission to speak to the caregivers and representatives has been obtained from the patient. Yes * Community resources currently utilized None * Additional services required to return to the preadmission environment? No * Can the patient safely return to the preadmission environment? Yes * Has this patient been hospitalized within the prior 30 days at any hospital? No Last DP export: 06/16/18 8:36 a Patient Name: AIDA SMITH Page [phone] at 1619 All edits/amendments must be made on the electronic document DICTATION DATE: 06/16/181618 AUTOMOTIVE LEASING SALES REPRESENTATIVE: DANAE 06/16/181618 RPT#: [id number] DC DATE:06/16/18 STATUS: DIS IN [facility] [address] [place] [address] END OF REPORT
== END 2018-06-16 13:25 | disposition home or self-care (01) | DRG 637 ==
LOC: D.ER 23:40 → D.EDHOLD 06-15 02:37 → D.ICU 06-15 02:37 → D.CVICU 06-15 15:33
PROVIDERS: Family Medicine; ADMIT Internal Medicine Nephrology; ATTEND Internal Medicine Nephrology
DX: E11.10 Type 2 diabetes mellitus with ketoacidosis without coma (principal); E43 Unspecified severe protein-calorie malnutrition; N17.9 Acute kidney failure, unspecified; Z68.1 Body mass index [BMI] 19.9 or less, adult; F17.203 Nicotine dependence unspecified, with withdrawal; Z91.14 Patient's other noncompliance with medication regimen; E83.39 Other disorders of phosphorus metabolism; F15.10 Other stimulant abuse, uncomplicated; E87.6 Hypokalemia

== ENCOUNTER 2018-10-29 20:42 | Observation (INO) | payer MEDICAID ==
[~2018-10-29] VITALS: Ht 172.7 cm; Wt 49.9 kg
[2018-10-29 21:11] LABS: BASOPHILS 0.2 % (0-2); EOSINOPHILS 1.9 % (0-7); HEMOGLOBIN 13.9 g/dL (13.5-17.5); IMMATURE GRANULOCYTES 0.3 % (0-5); LYMPHOCYTES 46.1 % (15-50); MCH 27.1 pg (26.0-34.0); MCHC 33.9 g/dL (31.0-37.0); MCV 80.1 fL (80.0-100.0); MEAN PLATELET VOLUME 9.8 fL (7.4-10.4); NEUTROPHILS 44.5 % (40-80); PLATELET COUNT 299 10x3/uL (130-400); RBC 5.12 10x6/uL (4.20-6.10); RDW 14.2 % (11.5-14.5); WBC 8.9 10x3/uL (4.8-10.8)
[2018-10-29 21:39] LABS: ALBUMIN 3.1 g/dL (3.4-5.0); ALKALINE PHOSPHATASE 184 U/L (46-116); ALT (SGPT) 71 U/L (10-68); BILIRUBIN - TOTAL 0.37 mg/dL (0.2-1.3); CALCIUM 8.8 mg/dL (8.5-10.1); CARBON DIOXIDE 29.2 mmol/L (21.0-32.0); CHLORIDE - SERUM 92 mmol/L (98-107); CREATININE - SERUM 1.1 mg/dL (0.6-1.3); MAGNESIUM - SERUM 1.7 mg/dL (1.8-2.4); PROTEIN - SERUM 7.2 g/dL (6.4-8.2); SODIUM 127 mmol/L (136-145); UREA NITROGEN 14 mg/dL (7-18); eGFR NON AFRICAN AMERICAN 77 mL/min (90-120)
[2018-10-29 21:45] LABS: CALC OSMOLALITY 283 mosm/kg (275-300)
[2018-10-29 21:46] LABS: GLUCOSE 610 mg/dL (74-106); KETONE - SERUM NEGATIVE (NEGATIVE)
[2018-10-29 23:03] VITALS: BP 95/68
--- NOTE | 2018-10-29 23:15 | NUR ---
URINE TO LAB
[2018-10-29 23:30] VITALS: BP 99/62
[2018-10-29 23:45] LABS: APPEARANCE CLEAR (CLEAR); BILIRUBIN NEGATIVE (NEGATIVE); COLOR YELLOW (YELLOW); GLUCOSE 1000 mg/dL (NEGATIVE); KETONE NEGATIVE (NEGATIVE); NITRITE NEGATIVE (NEGATIVE); PROTEIN NEGATIVE (NEGATIVE); SPECIFIC GRAVITY 1.005 (1.005-1.020); UROBILINOGEN NORMAL (NORMAL)
[2018-10-30 02:48] VITALS: BP 94/63; BMI 16.7
--- NOTE | 2018-10-30 03:59 | NUR ---
RECEIVED ORDER FOR TELE. CALLED MONITORS AND INFORMED BY HS THAT FEW MONITORS AVAILABLE AT THIS TIME AND TO WAIT UNTIL LATER IN THE DAY TO SEE IF MORE BECAME AVAILABLE.
[2018-10-30 04:00] VITALS: BP 92/60
[2018-10-30 05:22] LABS: HEMATOCRIT 35.3 % (42.0-54.0); HEMOGLOBIN 12.1 g/dL (13.5-17.5); MCH 27.1 pg (26.0-34.0); MCHC 34.3 g/dL (31.0-37.0); MEAN PLATELET VOLUME 9.4 fL (7.4-10.4); RBC 4.47 10x6/uL (4.20-6.10); RDW 14.1 % (11.5-14.5)
[2018-10-30 05:35] LABS: PLATELET COUNT 237 10x3/uL (130-400)
[2018-10-30 05:49] LABS: ALBUMIN 2.5 g/dL (3.4-5.0); ALKALINE PHOSPHATASE 116 U/L (46-116); ALT (SGPT) 58 U/L (10-68); BILIRUBIN - TOTAL 0.24 mg/dL (0.2-1.3); CALCIUM 7.9 mg/dL (8.5-10.1); CARBON DIOXIDE 26.6 mmol/L (21.0-32.0); CHLORIDE - SERUM 104 mmol/L (98-107); MAGNESIUM - SERUM 1.6 mg/dL (1.8-2.4); PROTEIN - SERUM 5.8 g/dL (6.4-8.2); SODIUM 139 mmol/L (136-145); UREA NITROGEN 12 mg/dL (7-18)
[2018-10-30 05:51] LABS: CALC OSMOLALITY 281 mosm/kg (275-300); CREATININE - SERUM 0.7 mg/dL (0.6-1.3); GLUCOSE 173 mg/dL (74-106); POTASSIUM - SERUM 3.2 mmol/L (3.5-5.1); eGFR NON AFRICAN AMERICAN > 90 mL/min (90-120)
--- NOTE | 2018-10-30 08:00 | NUR ---
ASSESSMENT PER FLOW SHEET. PT IS WITHOUT DISTRESS.DENIES NEEDS.CALL LIGHT IN REACH
[2018-10-30 08:46] VITALS: BP 80/52
[2018-10-30 08:53] LABS: EOSINOPHILS 4 % (0-7); HYPOCHROMASIA OCC; LYMPHOCYTES 44 % (15-50); MONOCYTES 8 % (2-11); NEUTROPHILS 42 % (40-80); PLATELET ESTIMATE NORMAL; ROULEAUX OCC
[2018-10-30 13:31] VITALS: Ht 172.7 cm; Wt 49.9 kg
--- NOTE | 2018-10-30 14:45 | NUR ---
IV DISCONNECTED FOR SHOWER. URINE TO LAB ORDERED
[2018-10-30 15:24] LABS: UDS - AMPHET NEGATIVE QUAL (NEGATIVE); UDS - BARB NEGATIVE QUAL (NEGATIVE); UDS - BENZO NEGATIVE QUAL (NEGATIVE); UDS - COCAINE NEGATIVE QUAL (NEGATIVE); UDS - OPIATE NEGATIVE QUAL (NEGATIVE); UDS - PCP NEGATIVE QUAL (NEGATIVE); UDS - THC NEGATIVE QUAL (NEGATIVE)
--- NOTE | 2018-10-30 16:58 | NUR ---
PT REFUSES METFORMIN ORDERED.PT STATES IT HAS NEVER WORKED BEFORE AND HE DOESNT WANT TO TRY IT AGAIN.
--- NOTE | 2018-10-30 17:56 | NUR ---
PT IS WITHOUT CHANGE FROM INTIAL SHIFT ASSESSMENT.CONT PLAN OF CARE
--- NOTE | 2018-10-30 20:00 | NUR ---
ASSESSMENT PER FLOWSHEET. IV PATENT RT FOREARM OF NS AT 100CC'S/HR SITE CLEAR. RESTING QUIETLY DENIES NEEDS SR UP X2 CALL LIGHT WITHIN REACH.
--- NOTE | 2018-10-30 21:00 | NUR ---
NIOT=914. REGULAR INSULIN 8 UNITS GIVEN PER S/S.
[2018-10-30 21:44] VITALS: BP 97/63
--- NOTE | 2018-10-31 | NUR ---
RESTING QUIETLY HS SNACK GIVEN PO 100% CONSUMED.
[2018-10-31 01:11] VITALS: BP 96/57
[2018-10-31 04:13] LABS: BASOPHILS 0.3 % (0-2); EOSINOPHILS 2.3 % (0-7); HEMOGLOBIN 11.6 g/dL (13.5-17.5); IMMATURE GRANULOCYTES 0.4 % (0-5); MCH 27.4 pg (26.0-34.0); MCHC 34.1 g/dL (31.0-37.0); MCV 80.2 fL (80.0-100.0); MEAN PLATELET VOLUME 9.7 fL (7.4-10.4); MONOCYTES 7.3 % (2-11); NEUTROPHILS 37.7 % (40-80); PLATELET COUNT 244 10x3/uL (130-400); RBC 4.24 10x6/uL (4.20-6.10); RDW 14.4 % (11.5-14.5); WBC 7.4 10x3/uL (4.8-10.8)
[2018-10-31 04:31] LABS: CHLORIDE - SERUM 109 mmol/L (98-107); SODIUM 140 mmol/L (136-145)
[2018-10-31 04:54] LABS: CALC OSMOLALITY 280 mosm/kg (275-300); CALCIUM 7.8 mg/dL (8.5-10.1); CARBON DIOXIDE 24.4 mmol/L (21.0-32.0); CREATININE - SERUM 0.7 mg/dL (0.6-1.3); GLUCOSE 141 mg/dL (74-106); UREA NITROGEN 12 mg/dL (7-18); eGFR NON AFRICAN AMERICAN > 90 mL/min (90-120)
[2018-10-31 04:55] LABS: POTASSIUM - SERUM 3.8 mmol/L (3.5-5.1)
[2018-10-31 06:23] VITALS: BP 98/61
--- NOTE | 2018-10-31 07:10 | NUR ---
AWAKENS INT. PT IS WITHOUT DISTRESS.DENIES NEEDS.CALL LIGHT IN REACH
[2018-10-31 08:36] VITALS: BP 104/73
--- NOTE | 2018-10-31 09:00 | NUR ---
ASSESSMENT PER FLOW SHEET. PT IS WITHOUT DISTRESS.
[2018-10-31 09:10] LABS: HEPATITIS C ANTIBODY >11.0 S/CO RAT (0.0-0.9)
--- NOTE | 2018-10-31 10:27 | NUR ---
FAMILY TO VISIT. REMAINS WITHOUT NEEDS.CALL LIGHT IN REACH
[2018-10-31] MEDS ORDERED: GLUCOPHAGE500 MG PO (12:22)
[2018-10-31 12:56] VITALS: BP 126/72
--- NOTE | 2018-10-31 14:11 | NUR ---
IV DCD WITH CATH TIP INTACT.DISCHARGE INSTRUCTIONS,STATES UNDERSTANDING.WAITING ON RIDE FOR TRANSPORT HOME
--- NOTE | 2018-10-31 14:40 | NUR ---
LEFT UNIT FOR TRANSPORT HOME
== END 2018-10-31 14:41 | disposition home health service (06) ==
LOC: D.ER 20:42 → D.MS 10-30 00:50 → OBSVTIME 10-30 00:50 → D.MS 10-30 00:50
PROVIDERS: Family Medicine; Internal Medicine Nephrology; ADMIT Family Medicine; ATTEND Family Medicine
DX: E11.65 Type 2 diabetes mellitus with hyperglycemia (principal); Z91.14 Patient's other noncompliance with medication regimen; I95.9 Hypotension, unspecified; F17.203 Nicotine dependence unspecified, with withdrawal; D50.9 Iron deficiency anemia, unspecified; E87.6 Hypokalemia; E83.42 Hypomagnesemia; F15.90 Other stimulant use, unspecified, uncomplicated

== ENCOUNTER 2018-11-30 23:31 | Inpatient (IN) | payer MEDICAID ==
[~2018-11-30] VITALS: Ht 172.7 cm; Wt 56.6 kg
[~2018-11-30 23:31] MED LIST changes: +GLUCOPHAGE500 MG PO
[2018-11-30 23:56] LABS: BASOPHILS 0.2 % (0-2); EOSINOPHILS 0.2 % (0-7); HEMATOCRIT 41.6 % (42.0-54.0); HEMOGLOBIN 12.8 g/dL (13.5-17.5); IMMATURE GRANULOCYTES 0.4 % (0-5); LYMPHOCYTES 15.7 % (15-50); MCH 27.9 pg (26.0-34.0); MCHC 30.8 g/dL (31.0-37.0); MCV 90.6 fL (80.0-100.0); MONOCYTES 4.4 % (2-11); NEUTROPHILS 79.1 % (40-80); RBC 4.59 10x6/uL (4.20-6.10); RDW 14.6 % (11.5-14.5); WBC 13.3 10x3/uL (4.8-10.8)
[2018-11-30 23:59] LABS: PLATELET COUNT 300 10x3/uL (130-400)
[2018-12-01] VITALS (22 sets, daily range): BP systolic 94–127; BP diastolic 57–88; Ht 172.7 cm; Wt 56.6 kg
[2018-12-01 00:10] LABS: ALBUMIN 3.4 g/dL (3.4-5.0); ALKALINE PHOSPHATASE 199 U/L (46-116); ALT (SGPT) 62 U/L (10-68); BILIRUBIN - TOTAL 0.55 mg/dL (0.2-1.3); CALCIUM 8.2 mg/dL (8.5-10.1); CARBON DIOXIDE 22.5 mmol/L (21.0-32.0); CREATININE - SERUM 1.5 mg/dL (0.6-1.3); MAGNESIUM - SERUM 1.6 mg/dL (1.8-2.4); POTASSIUM - SERUM 5.2 mmol/L (3.5-5.1); PROTEIN - SERUM 6.9 g/dL (6.4-8.2); UREA NITROGEN 17 mg/dL (7-18); eGFR NON AFRICAN AMERICAN 54 mL/min (90-120)
[2018-12-01 00:10] LABS: APPEARANCE CLEAR (CLEAR); BILIRUBIN NEGATIVE (NEGATIVE); COLOR COLORLESS (YELLOW); GLUCOSE 1000 mg/dL (NEGATIVE); KETONE MODERATE mg/dL (NEGATIVE); NITRITE NEGATIVE (NEGATIVE); PROTEIN NEGATIVE (NEGATIVE); UROBILINOGEN NORMAL (NORMAL)
[2018-12-01 00:13] LABS: CALC OSMOLALITY 293 mosm/kg (275-300); CHLORIDE - SERUM 82 mmol/L (98-107); GLUCOSE 1069 mg/dL (74-106); SODIUM 118 mmol/L (136-145)
[2018-12-01 00:14] LABS: KETONE - SERUM LARGE mg/dL (NEGATIVE)
--- NOTE | 2018-12-01 01:00 | NUR ---
PT BS 1038 PER LAB
--- NOTE | 2018-12-01 01:20 | NUR ---
RECEIVED PATIENT FROM ED VIA WC ACCOMPANIED BY ED RN. TRANSFERED TO ICU BED 2312. MONITORS CONNECTED TO PATIENT WITH ALARMS SET. VSS. ADMISSION ASSESSMENT COMPLETED PER FLOW SHEET WITH NO ACUTE DISTRESS OBSERVED. ORIENTED TO ICU/ROOM AND CALL LIGHT. CALL LIGHT IN REACH AND ABLE TO UTILIZE TO MAKE NEEDS KNOWN.
[2018-12-01 01:59] LABS: CALCIUM 7.9 mg/dL (8.5-10.1); CREATININE - SERUM 1.2 mg/dL (0.6-1.3)
[2018-12-01 02:20] LABS: POTASSIUM - SERUM 3.6 mmol/L (3.5-5.1)
--- NOTE | 2018-12-01 02:20 | NUR ---
SPOKE WITH DELL MTZ APN. UPDATED ON PATIENT. NEW ORDERS RECEIVED.
[2018-12-01 02:25] LABS: ANION GAP 18.1 mmol/L (8-16); CARBON DIOXIDE 21.5 mmol/L (21.0-32.0)
--- NOTE | 2018-12-01 03:00 | NUR ---
RESTING WITH EYES CLOSED , EASILY ROUSED AND ALERT, VSS
--- NOTE | 2018-12-01 05:00 | NUR ---
RESTING WITH EYES CLOSED, EASILY ROUSED AND ALERT. VSS
[2018-12-01 06:06] LABS: BASOPHILS 0.2 % (0-2); EOSINOPHILS 1.4 % (0-7); HEMATOCRIT 34.1 % (42.0-54.0); HEMOGLOBIN 11.7 g/dL (13.5-17.5); IMMATURE GRANULOCYTES 0.2 % (0-5); LYMPHOCYTES 35.1 % (15-50); MCH 27.2 pg (26.0-34.0); MCHC 34.3 g/dL (31.0-37.0); MEAN PLATELET VOLUME 9.6 fL (7.4-10.4); MONOCYTES 6.6 % (2-11); NEUTROPHILS 56.5 % (40-80); PLATELET COUNT 279 10x3/uL (130-400); RDW 14.1 % (11.5-14.5); WBC 10.4 10x3/uL (4.8-10.8)
[2018-12-01 06:08] LABS: MCV 79.3 fL (80.0-100.0)
[2018-12-01 07:10] LABS: CALCIUM 7.8 mg/dL (8.5-10.1); CARBON DIOXIDE 19.8 mmol/L (21.0-32.0); CHLORIDE - SERUM 102 mmol/L (98-107); PHOSPHOROUS 3.2 mg/dL (2.5-4.9); SODIUM 135 mmol/L (136-145); UREA NITROGEN 12 mg/dL (7-18)
[2018-12-01 07:12] LABS: MAGNESIUM - SERUM 2.1 mg/dL (1.8-2.4)
[2018-12-01 07:14] LABS: CALC OSMOLALITY 290 mosm/kg (275-300); CREATININE - SERUM 0.8 mg/dL (0.6-1.3); GLUCOSE 485 mg/dL (74-106); eGFR NON AFRICAN AMERICAN > 90 mL/min (90-120)
--- NOTE | 2018-12-01 07:30 | NUR ---
REPORT RECEIVED. PT IS IN DKA. HE HAS AN IV TO HIS RIGHT AC AND LEFT FOREARM. HE HAS NORMAL SALINE AND REGULAR INSULIN INFUSING. HE IS A FSBS Q1H. VSS. NO COMPLAINTS OR NEEDS AT THIS TIME. WILL CONTINUE TO MONITOR.
[2018-12-01 08:36] LABS: UDS - AMPHET POSITIVE QUAL (NEGATIVE); UDS - BARB NEGATIVE QUAL (NEGATIVE); UDS - BENZO NEGATIVE QUAL (NEGATIVE); UDS - COCAINE NEGATIVE QUAL (NEGATIVE); UDS - OPIATE NEGATIVE QUAL (NEGATIVE); UDS - PCP NEGATIVE QUAL (NEGATIVE); UDS - THC NEGATIVE QUAL (NEGATIVE)
[2018-12-01 08:39] LABS: % SATURATION 20 % (15-55); IRON 40 ug/dl (35-150); TOTAL IRON BIND CAPACITY 193 ug/dl (260-445); UNSAT IRON BIND CAPACITY 153 ug/dl (150-375)
--- NOTE | 2018-12-01 09:30 | NUR ---
BLOOD SUGAR DOWN TO 351. DOCUMENTED IN FLOW SHEET AND INSULIN ADJUSTED PER PROTOCOL. VSS. WILL CONTINUE TO MONITOR.
[2018-12-01 09:56] LABS: CALC OSMOLALITY 288 mosm/kg (275-300); CALCIUM 7.6 mg/dL (8.5-10.1); CARBON DIOXIDE 20.9 mmol/L (21.0-32.0); CHLORIDE - SERUM 104 mmol/L (98-107); CREATININE - SERUM 0.7 mg/dL (0.6-1.3); SODIUM 137 mmol/L (136-145); UREA NITROGEN 10 mg/dL (7-18); eGFR NON AFRICAN AMERICAN > 90 mL/min (90-120)
[2018-12-01 09:59] LABS: GLUCOSE 385 mg/dL (74-106)
--- NOTE | 2018-12-01 11:30 | NUR ---
BLOOD SUGAR AND INSULIN CHECKED AND ADJUSTED PER PROTOCOL. PT HAD SIP OF WATER. VSS. NO OTHER NEEDS AT THIS TIME. WILL CONTINUE TO MONITOR.
--- NOTE | 2018-12-01 13:00 | NUR ---
NO CHANGES IN PT STATUS. CONTINUING TO MONITOR BLOOD SUGARS EVERY HR AND ADJUSTING INSULIN DRIP PER PROTOCOL.
[2018-12-01 13:42] LABS: CALC OSMOLALITY 288 mosm/kg (275-300); CALCIUM 7.9 mg/dL (8.5-10.1); CARBON DIOXIDE 22.3 mmol/L (21.0-32.0); CHLORIDE - SERUM 107 mmol/L (98-107); CREATININE - SERUM 0.7 mg/dL (0.6-1.3); POTASSIUM - SERUM 3.6 mmol/L (3.5-5.1); SODIUM 141 mmol/L (136-145); UREA NITROGEN 9 mg/dL (7-18); eGFR NON AFRICAN AMERICAN > 90 mL/min (90-120)
[2018-12-01 13:43] LABS: GLUCOSE 261 mg/dL (74-106)
--- NOTE | 2018-12-01 15:00 | NUR ---
REASSESSMENT DONE. VSS. PT RESTING QUIETLY.
--- NOTE | 2018-12-01 15:45 | NUR ---
BLOOD SUGAR 58. INSULIN DRIP STOPPED. D5NS STARTED AT 75ML/HR. LAB TO DRAW GLUCOSE. WILL RESTART INSULIN DRIP ONCE BLOOD SUGAR GETS BACK OVER 100. REVIEWED ALL OF THIS WITH DR JOHNSON. WILL CONTINUE TO MONITOR PT'S STATUS.
[2018-12-01 16:39] LABS: CALCIUM 7.9 mg/dL (8.5-10.1); CARBON DIOXIDE 24.1 mmol/L (21.0-32.0); CHLORIDE - SERUM 108 mmol/L (98-107); CREATININE - SERUM 0.6 mg/dL (0.6-1.3); SODIUM 143 mmol/L (136-145); UREA NITROGEN 8 mg/dL (7-18); eGFR NON AFRICAN AMERICAN > 90 mL/min (90-120)
[2018-12-01 16:41] LABS: CALC OSMOLALITY 279 mosm/kg (275-300); GLUCOSE 53 mg/dL (74-106)
[2018-12-01 16:42] LABS: POTASSIUM - SERUM 2.8 mmol/L (3.5-5.1)
--- NOTE | 2018-12-01 17:30 | NUR ---
BLOOD SUGAR HAS INCREASED TO OVER 150. PT STATES HE FEELS BETTER, BUT THAT HE TYPICALLY RUNS IN THE "600S." WILL CLOSELY MONITOR BLOOD SUGAR, PER ORDERS AND PROTOCOL.
--- NOTE | 2018-12-01 19:00 | NUR ---
REPORT RECIEVED, PT AAOX4, STATES HE "FEELS A BIT WOOZY", BUT OTHERWISE ASYMPTOMATIC. INSULIN GTT INFUSING, SEE FLOWSHEET. ASSESSMENT COMPLETED, SEE FLOWSHEET. VITALS STABLE, WILL CONTINUE TO MONITOR.
--- NOTE | 2018-12-01 21:00 | NUR ---
PT STATES HE "FEELS A BIT BETTER", Q1H FSBS CONTINUING PER PROTOCOL. NO ACUTE DISTRESS NOTED, WILL CONTINUE TO MONITOR.
[2018-12-01 21:05] LABS: CALCIUM 8.2 mg/dL (8.5-10.1); CARBON DIOXIDE 25.7 mmol/L (21.0-32.0); CHLORIDE - SERUM 107 mmol/L (98-107); CREATININE - SERUM 0.5 mg/dL (0.6-1.3); SODIUM 142 mmol/L (136-145); UREA NITROGEN 6 mg/dL (7-18); eGFR NON AFRICAN AMERICAN > 90 mL/min (90-120)
[2018-12-01 21:10] LABS: CALC OSMOLALITY 278 mosm/kg (275-300); GLUCOSE 58 mg/dL (74-106); POTASSIUM - SERUM 3.4 mmol/L (3.5-5.1)
--- NOTE | 2018-12-01 21:45 | MORECARE ---
CASE MANAGEMENT DISCHARGE SUMMARY PATIENT: AIDA CASPER UNIT: [id number] ADM DATE: 12/01/18 AGE: 43 : 73 SEX: M ROOM/BED: D.2312 AUTHOR: BRADLEYDOC PHYSICIAN: REFERRING PHYSICIAN: CHIP JOHNSON MD DATE OF SERVICE: 12/01/18 Discharge Plan Patient Name: AIDA CASPER Facility: [facility]:[place] : 1975 Planned Disposition: Home Anticipated Discharge Date: Discharge Date: Expected LOS: Initial Reviewer: [email or web address] Initial Review Date: 12/01/2018 Generated: 12/01/18 10:45 pm Comments DCP- Discharge Planning Updated by [email or web address]: Juana Cruz on 12/01/18 8:[address] Patient Name: AIDA Amaro CASPER Admission Status: ER Accout number: [id number] Admission Date: 12-01-2018 : 1975 Admission Diagnosis: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 Patient lives at home with his mother where he is independent with his care and plans to return there upon discharge. Patient feels this would be a safe discharge. CM discussed availability / needs of home health and medical equipment. Patient denies any discharge needs at this time. Patient states he will have his family drive him home upon discharge. CM will continue to follow and assist as needed with discharge planning / needs. Post Exchange Manager: Juana Cruz DCPIA - Discharge Planning Initial Assessment Updated by [email or web address]: Juana Cruz on 12/01/18 9:43 pm * Is the patient Alert and Oriented? Yes * How many steps to enter\exit or inside your home? * PCP Ramirezo * Pharmacy [facility] * Preadmission Environment Home with Family * ADLs Independent * Equipment Glucometer * List name and contact numbers for known caregivers / representatives who currently or will assist patient after discharge: Leslie Casper - Mother - [phone] * Verbal permission to speak to the caregivers and representatives has been obtained from the patient. Yes * Community resources currently utilized None * Additional services required to return to the preadmission environment? No * Can the patient safely return to the preadmission environment? Yes * Has this patient been hospitalized within the prior 30 days at any hospital? No Patient Name: AIDA CASPER Page [phone] at 2145 All edits/amendments must be made on the electronic document DICTATION DATE: 12/01/182144 CADMIUM LIQUOR MAKER: DANAE 12/01/182144 RPT#: [id number] DC DATE: STATUS: ADM IN [facility] [address] [place] [address] END OF REPORT
--- NOTE | 2018-12-01 22:45 | NUR ---
DROP FORGER HELPER SPOKE WITH AND UPDATED ON PT'S STATUS, NEW ORDERS RECIEVED. PT REQUESTED TO "LEAVE AMA IF [HE] DOESN'T GET SOMETHING TO EAT," GIVEN SANDWICH PER DROP FORGER HELPER'S ORDERS. BLOOD SUGAR MONITORED CLOSELY, WILL CONTINUE TO MONITOR.
--- NOTE | 2018-12-01 23:10 | NUR ---
PT AAOX4, STATES FEELING "MUCH BETTER AFTER EATING," NO ACUTE DISTRESS NOTED, WILL CONTINUE TO MONITOR.
[2018-12-02] VITALS (12 sets, daily range): BP systolic 90–116; BP diastolic 60–83
--- NOTE | 2018-12-02 01:00 | NUR ---
PT RESTING IN BED, VITALS STABLE, NO ACUTE SIGNS OF DISTRESS. WILL CONTINUE TO MONITOR.
--- NOTE | 2018-12-02 03:00 | NUR ---
PT RESTING ON RIGHT SIDE, NO SIGNS OF ACUTE DISTRESS, WILL CONTINUE TO MONITOR.
[2018-12-02 04:36] LABS: KETONE - SERUM NEGATIVE (NEGATIVE)
[2018-12-02 04:40] LABS: BASOPHILS 0.4 % (0-2); EOSINOPHILS 1.7 % (0-7); HEMATOCRIT 33.5 % (42.0-54.0); HEMOGLOBIN 11.5 g/dL (13.5-17.5); IMMATURE GRANULOCYTES 0.2 % (0-5); LYMPHOCYTES 42.9 % (15-50); MCH 27.5 pg (26.0-34.0); MCHC 34.3 g/dL (31.0-37.0); MCV 80.1 fL (80.0-100.0); MEAN PLATELET VOLUME 9.5 fL (7.4-10.4); MONOCYTES 7.6 % (2-11); NEUTROPHILS 47.2 % (40-80); PLATELET COUNT 290 10x3/uL (130-400); RBC 4.18 10x6/uL (4.20-6.10); RDW 14.2 % (11.5-14.5)
[2018-12-02 04:48] LABS: CALCIUM 8.3 mg/dL (8.5-10.1); CARBON DIOXIDE 26.9 mmol/L (21.0-32.0); CHLORIDE - SERUM 111 mmol/L (98-107); CREATININE - SERUM 0.6 mg/dL (0.6-1.3); MAGNESIUM - SERUM 1.7 mg/dL (1.8-2.4); SODIUM 142 mmol/L (136-145); eGFR NON AFRICAN AMERICAN > 90 mL/min (90-120)
[2018-12-02 04:49] LABS: PHOSPHOROUS 2.1 mg/dL (2.5-4.9)
[2018-12-02 04:50] LABS: CALC OSMOLALITY 279 mosm/kg (275-300); GLUCOSE 58 mg/dL (74-106); UREA NITROGEN 9 mg/dL (7-18)
--- NOTE | 2018-12-02 05:59 | NUR ---
PO MAG AND PHOS ADMININSTERED PER ELECTROLYTE PROTOCOL. NO DIFFICULTIES SWALLOWING, PT AAOX4, VITALS STABLE, WILL CONTINUE TO MONITOR.
--- NOTE | 2018-12-02 07:26 | NUR ---
LYING IN BED RESTING AT THIS TIME. NO ACUTE DISTRESS NOTED. VSS. RESPIRATIONS STEADY AND UNLABORED.AWAKENS EASILY WHEN SPOKEN TO. DENIES ANY NEEDS. WILL CONTINUE PLAN OF CARE.
--- NOTE | 2018-12-02 10:36 | NUR ---
PT STATES HE IS TIRED OF BEING IN THE HOSPITAL AND WANTS TO LEAVE AMA. ATTEMPING TO CALL DR JOHNSON TO NOTIFY FOR FURTHER ORDERS.
--- NOTE | 2018-12-02 10:45 | NUR ---
DR JOHNSON NOTIFIED THAT PT IS TALKING ABOUT WANTING TO LEAVE AMA. PT ENCOURAGED TO WAIT UNTIL PHYSICIAN SEES HIM FIRST. PT STATES HE HAS LEFT AMA AT OTHER FACILITIES IN THE PAST, AND DOESN'T KNOW IF HE WANTS TO WAIT FOR PHYSICIAN TO ARRIVE. DR JOHNSON STATES HE WOULD BE BY SHORTLY TO SEE PT. NO ACUTE DISTRESS NOTED. VSS. WILL CONTINUE PLAN OF CARE.
--- NOTE | 2018-12-02 11:37 | NUR ---
PT CONTINUES TO PERSISTENTLY STATE HE WANTS TO LEAVE AMA. DR JOHNSON NOTIFIED, HE STATED TO ENCOURAGE PT TO STAY BECAUSE HE IS HERE FOR DKA AND ON INSULIN GTT AND HE IS NOT MEDICALLY READY TO BE DISCHARGED. PT STATES UNDERSTANDING OF CONSEQUENCES RELATED TO LEAVING BEFORE MEDICALLY READY AND STATES HE DOES NOT CARE, HE HAS LEFT AMA BEFORE. PT IS ALERT AND ORIENTED. PER DR JOHNSON, IF PT REFUSES TO STAY TO HAVE HIM SIGN AMA FORM SINCE HE WOULD BE LEAVING AGAINST MEDICAL ADVICE. WILL CONTINUE TO ENCOURAGE PT TO STAY. VSS. WILL CONTINUE TO CLOSELY OBSERVE.
--- NOTE | 2018-12-02 11:47 | NUR ---
PT LEFT AMA AT THIS TIME. PT STATES ALL UNDERSTANDING OF CONSEQUENCES REGARDING LEAVING AGAINST MEDICAL ADVISE. LT AC AND LT FOREARM IVS DCD AT THIS TIME, CATHETER TIPS INTACT. PT LEFT WITH ALL PERSONAL ITEMS. ALERT AND ORIENTED. NO ACUTE DISTRESS NOTED. VSS. NO FURTHER ACTIONS.
--- NOTE | 2018-12-02 13:24 | MORECARE ---
CASE MANAGEMENT DISCHARGE SUMMARY PATIENT: AIDA CASPER UNIT: [id number] ADM DATE: 12/01/18 AGE: 43 : [birth year] SEX: M ROOM/BED: D.2312 AUTHOR: BRADLEYDOC PHYSICIAN: REFERRING PHYSICIAN: CHIP JOHNSON MD DATE OF SERVICE: 12/02/18 Discharge Plan Patient Name: AIDA CASPER Facility: [facility]:[place] : 1975 Planned Disposition: Home Anticipated Discharge Date: Discharge Date: 12/02/2018 Expected LOS: Initial Reviewer: [email or web address] Initial Review Date: 12/01/2018 Generated: 12/02/18 2:24 pm Comments DCP- Discharge Planning Updated by [email or web address]: Juana Cruz on 12/01/18 8:[address] Patient Name: AIDA CASPER Admission Status: ER Accout number: [id number] Admission Date: 12-01-2018 : 1975 Admission Diagnosis: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 Patient lives at home with his mother where he is independent with his care and plans to return there upon discharge. Patient feels this would be a safe discharge. CM discussed availability / needs of home health and medical equipment. Patient denies any discharge needs at this time. Patient states he will have his family drive him home upon discharge. CM will continue to follow and assist as needed with discharge planning / needs. Compass Operator: Juana Cruz DCPIA - Discharge Planning Initial Assessment Updated by [email or web address]: Juana Cruz on 12/01/18 9:43 pm * Is the patient Alert and Oriented? Yes * How many steps to enter\exit or inside your home? * PCP Lizbet * Pharm[facility] [place] * Preadmission Environment Home with Family * ADLs Independent * Equipment Glucometer * List name and contact numbers for known caregivers / representatives who currently or will assist patient after discharge: Leslie Casper - Mother - [phone] * Verbal permission to speak to the caregivers and representatives has been obtained from the patient. Yes * Community resources currently utilized None * Additional services required to return to the preadmission environment? No * Can the patient safely return to the preadmission environment? Yes * Has this patient been hospitalized within the prior 30 days at any hospital? No Last DP export: 12/01/18 8:45 p Patient Name: AIDA CASPER Page [id number] at 1324 All edits/amendments must be made on the electronic document DICTATION DATE: 12/02/18 1323 CERTIFIED OPHTHALMIC MEDICAL TECHNICIAN: DANAE 12/02/18 1323 RPT#: [id number] DC DATE:12/02/18 STATUS: DIS IN [facility] [address] [place] [address] END OF REPORT
== END 2018-12-02 11:47 | disposition left against medical advice (07) | DRG 637 ==
LOC: D.ER 23:31 → D.ICU 12-01 00:26
PROVIDERS: Emergency Medicine; ADMIT Internal Medicine Nephrology; ATTEND Internal Medicine Nephrology
DX: E11.10 Type 2 diabetes mellitus with ketoacidosis without coma (principal); E43 Unspecified severe protein-calorie malnutrition; E87.1 Hypo-osmolality and hyponatremia; F17.203 Nicotine dependence unspecified, with withdrawal; Z68.1 Body mass index [BMI] 19.9 or less, adult; Z79.4 Long term (current) use of insulin; F15.10 Other stimulant abuse, uncomplicated; D50.9 Iron deficiency anemia, unspecified